=== PATIENT | male | born 1925 | race Caucasian/White ===

== ENCOUNTER 2016-10-02 08:38 | Outpatient (CLI) | payer MEDICARE, OTHER ==
[~2016-10-02] VITALS: Ht 170.2 cm; Wt 61.4 kg
--- NOTE | ~2016-10-02 | HEMODYNAMI ---
PATIENT:JOAQUIN TREADWELL MEDICAL RECORD: [id number] : [birth year] LOCATION:[facility] ADMISSION DATE: 10/02/16 Generatedon:10/02/201615:12 Patient name: JOAQUIN TREADWELL Patient #: [id number] SSN: [id number] : 1925 Date of study: 10/02/2016 Page: Of Hemodynamic Procedure Report Patient Data Patient Demographics Procedure consent was obtained First Name: JOAQUIN Gender: Male Last Name: EBEN : 1925 Patient #: [id number] Age: 89 year(s) Race: SSN: [id number] Additional ID: [id number] Contact details Address: [address] [place] [address] State: [place] City: [place] Zip code: [address] Admission Admission Data Admission Date: 10/02/2016 Admission Time: 8:38 Arrival Date: 10/02/2016 Arrival Time: 11:00 Admit Source: Other Insurance Payor: Medicare Height (in.): 67 BSA: 1.71 (m2) Height (cm.): 170.18 BMI: 21.14 (kg/m2) Weight (lbs.): 135 Weight (kg.): 61.23 Lab Results Lab Result Date: 10/02/2016 Lab Result Time: 0:00 Biochemistry Name Units Result Min Max BUN mg/dl 34 --(----)-* 7 18 Creatinine mg/dl 1.6 --(----)-* 0.6 1.3 CBC Name Units Result Min Max Hemoglobin g/dl 13 -*(----)-- 13.5 17.5 Procedure Procedure Types Cath Procedure Diagnostic Procedure LHC LHC w/Coronaries w/Grafts PCI Procedure SVG-BMS/FIDEL Initial Miscellaneous Procedures Moderate Sedation up to 45 minutes Procedure Description Procedure Date Procedure Date: 10/02/2016 Procedure Start Time: 14:27 Procedure End Time: 15:07 Procedure Staff Name Function Nidia Ribera RN Nurse Ish Martinez MD Performing Physician Jackie Brown RT Scrub Kristan Myers RT Monitor Indication Angina Procedure Data Cath Procedure Fluoroscopy Diagnostic fluoroscopy Total fluoroscopy Time: 11 time: 11 min min Diagnostic fluoroscopy Total fluoroscopy dose: 877 dose: 877 mGy mGy Contrast Material Contrast Material Type Amount (ml) Isovue 370 174 Entry Location Entry Primary Successful Side Size Upsize Upsize Entry Closure Succes sful Closure Location (Fr) 1 (Fr) 2 (Fr) Remarks Device Remarks Femoral Right 5 Fr 6 Fr 6 Fr Exoseal artery Long Short Estimated blood loss: 5 ml Diagnostic catheters Device Type Used For End Catheter Placement Cordis 5Fr Pigtail LV Angiography Catheter (MP) Cordis 5Fr JL 4.0 Left Coronary Catheter (MP) Angiography Cordis 5Fr 3DRC Catheter Multi-vessel (MP) Angiography Diagnostic Infinity 5Fr Multi-vessel AR 2 MOD catheter Angiography Procedure Complications No complications Procedure Medications Medication Administration Route Dosage Oxygen NC 2 l/min Lidocaine 2% added to field 20 Heparin Flush Bag added to field 2 bags (1000units/500ml NS) 0.9% NaCl I.V. 100 ml/hr Versed I.V. 1 mg Fentanyl I.V. 50 mcg Versed I.V. 0.5 mg Fentanyl I.V. 25 mcg Versed I.V. 0.5 mg Fentanyl I.V. 25 mcg Heparin Bolus I.V. 4000 units Cardene I.C. 300 mcg Integrilin (Bolus I.V. 5.6 ml 2mg/ml) Nitroglycerin IC/IA I.C. 100 mcg Hemodynamics Rest BSA: 1.71 (m2) HGB: 13 (g/dl) O2 Consumption: Estimated: 190.04 (ml/min) O2 Cons umption indexed: Estimated:111.13 (ml/min/m) Heart Rate: 65 (bpm) Snapshots Pre Cath Intra NCS Post Cath Vital Signs Time Heart Resp SPO2 etCO2 [id number] NIBP (mmHg) Rhythm Pain Sedation Rate (ipm) (%) (mmHg) (mmHg) Status Level (bpm) 14:14:25 64 19 98 0 0 149/90(123) NSR 0 (11) 10(A) , No pain 14:18:43 62 18 96 0 0 155/69(119) NSR 0 (11) 10(A) , No pain 14:23:04 67 18 95 0 0 132/69(104) NSR 0 (11) 10(A) , No pain 14:27:20 67 18 94 0 0 122/58(96) NSR 0 (11) 9(A) , No pain 14:31:27 62 20 96 0 0 136/70(106) NSR 0 (11) 9(A) , No pain 14:35:42 64 19 96 0 0 127/68(106) NSR 0 (11) 9(A) , No pain 14:39:51 62 19 96 0 0 134/69(106) NSR 0 (11) 9(A) , No pain 14:44:05 61 18 94 0 0 131/66(97) NSR 0 (11) 9(A) , No pain 14:48:19 63 17 95 0 0 141/62(107) NSR 0 (11) 9(A) , No pain 14:52:36 63 16 95 0 0 128/64(98) NSR 0 (11) 9(A) , No pain 14:57:53 63 14 97 0 0 137/58(118) NSR 0 (11) 9(A) , No pain 15:02:15 57 15 97 0 0 115/44(77) NSR 0 (11) 9(A) , No pain 15:06:21 62 19 96 0 0 132/70(101) NSR 0 (11) 10(A) , No pain Medications Time Medication Route Dose Verified Delivered Reason Notes Effectiveness by by 14:13:54 Oxygen NC 2 Ish Jacob used for l/min Michelle Ribera RN procedure 14:16:15 Lidocaine 2% added 20ml Ishjanine Deng for local to vial Michelle Martinez MD anesthetic field 14:16:22 Heparin Flush added 2 Ish Ish used for Bag to bags Michelle Martinez MD procedure (1000units/500ml field NS) 14:16:31 0.9% NaCl I.V. 100 Ish Jacob Per ml/hr Michelle Ribera RN physician 14:24:22 Versed I.V. 1 mg Ish Jacob for sedation Michelle Ribera RN 14:24:28 Fentanyl I.V. 50 Ish Normanie for sedation mcg Michelle Ribera RN 14:34:09 Versed I.V. 0.5 Ish Buffie for sedation mg Michelle Ribera RN 14:34:13 Fentanyl I.V. 25 Ish Jacob for sedation mcg Michelle Ribera RN 14:47:57 Versed I.V. 0.5 Ish Jacob for sedation mg Michelle Ribera RN 14:48:00 Fentanyl I.V. 25 Ish Jacob for sedation mcg Michelle Ribera RN 14:53:56 Heparin Bolus I.V. 4000 Ish Jacob verified units Michelle Ribera RN with dr martinez 14:56:37 Integrilin I.V. 5.6 Ish Jacob for Wasted (Bolus 2mg/ml) ml Michelle Ribera RN antiplatelet 4.4 ml therapy of vial 14:56:49 Cardene I.C. 300 Ish Jacob Per mcg Michelle Ribera RN physician 14:58:47 Nitroglycerin I.C. 100 Ish Deng IC/IA mcg Michelle Martinez MD Procedure Log Time Note 13:54:27 Informed consent obtained and on chart 13:55:07 Admit Source: Other 13:55:56 Arrival Date: 10/02/2016 11:00:00 AM 13:56:03 Insurance Payor : Medicare 13:56:16 Patient Height : 67 cm 13:56:19 Patient Weight : 135 kg 13:57:05 Lab Result : Hemoglobin 13 g/dl 13:57:05 Lab Result : Creatinine 1.6 mg/dl 13:57:05 Lab Result : BUN 34 mg/dl 13:57:17 Diagnostic Cath Status : Elective 13:57:43 Indication : Angina 13:57:50 Jackie Brown RT(R) sent for patient. Start room use. 13:57:53 Time tracking: Regular hours 13:57:58 Plan of Care:Hemodynamics will remain stable., Cardiac rhythm will remain stable., Comfort level will be maintained., Respiratory function will remain adequate., Patient/ family verbilizes understanding of procedure., Procedure tolerated without complication., Recovers from procedure without complications.. 14:05:22 Patient received from Pre/Post Procedure Room to CCL 1 Alert and oriented. Tansferred to table in Supine position. 14:05:28 Warm blankets applied, and victorino hugger turned on for patient comfort. 14:05:29 Correct patient and procedure confirmed by team. 14:05:30 ECG and BP/O2 sat monitors applied to patient. 14:13:16 Vital chart was started 14:13:16 Baseline sample Acquired. 14:13:21 Rhythm: sinus rhythm 14::24 Full Disclosure recording started 14:13:54 Oxygen 2 l/min NC was administered by Nidia Ribera RN; used for procedure; 14:16:15 Lidocaine 2% 20ml vial added to field was administered by Ish Martinez MD; for local anesthetic; 14:16:22 Heparin Flush Bag (1000units/500ml NS) 2 bags added to field was administered by Ish Martinez MD; used for procedure; 14:16:31 0.9% NaCl 100 ml/hr I.V. was administered by Nidia Ribera RN; Per physician; 14:17:21 H&P Date Dictated: 10/01/2016 Within 30 days and on chart., H&P Addendum completed by physician on day of procedure. (MUST COMPLETE FOR ALL OUTPATIENTS). 14:17:23 Pre-procedure instructions explained to patient. 14:17:24 Pre-op teaching completed and patient verbalized understanding. 14:17:25 Family in waiting room. 14:17:27 Patient NPO since Midnight. 14:17:32 Is the patient allergic to Iodine/contrast media? No. 14:17:34 Was the patient premedicated? No 14:17:41 Is patient on blood thinner?Yes 14:17:44 ACC The patient was administered the following blood thiners within the last 24 hours: ACCPlavix 14:18:03 Patient diabetic? No. 14:18:09 Previous problem with sedation/anesthesia? No ? 14:18:14 Snore? No 14:18:16 Sleep apnea? No 14:18:17 Deviated septum? No 14:18:18 Opens mouth fully? Yes 14:18:19 Sticks out tongue? Yes 14:18:27 Airway obstruction? Yes asthma 14:18:33 Dentures? Yes out 14:18:38 Pre procedure: right dorsailis pedis pulse 1+ Palpable, but thready & weak; easily obliterated 14:18:40 Patient pain scale 0/10 ?. 14:18:48 IV patent on arrival in right hand with 0.9% NaCl at [facility]. 14:21:27 Lab results completed and on chart. 14::34 Alarms reviewed by R. N. 14::34 Right groin area was prepped with chlora-prep and draped in sterile fashion 14::35 Sharps counted by scrub and verified by R.N. 14::38 Physician paged 14:: --------ALL STOP TIME OUT------ 14::29 Physician arrived 14::33 Final Timeout: patient, procedure, and site verified with staff and physician. All members of the team are in agreement. 14:22:36 Right groin site verified by team. 14::39 Physical assessment completed. ASA score P 2 - A patient with mild systemic disease as per Ish Martinez MD. 14::43 Sedation plan: IV Moderate Sedation Versed, Fentanyl 14:22:49 Use device set Femoral Dx 14:22:50 Bag Decanter opened to sterile field. 14:22:50 Acist Syringe opened to sterile field. 14:22:51 Terumo 5Fr Clayton Sheath opened to sterile field. 14:22:51 Medline Cath Pack opened to sterile field. 14:22:52 St Clark 260cm J .035 wire opened to sterile field. 14:22:53 Diagnostic Infinity 5Fr Multipack catheter opened to sterile field. 14:22:53 Acist Manifold opened to sterile field. 14:22:53 Acist Hand Control opened to sterile field. 14:22:54 Tegaderm 4 x 4 opened to sterile field. 14:24:22 Versed 1 mg I.V. was administered by Nidia Ribera RN; for sedation; 14:24:28 Fentanyl 50 mcg I.V. was administered by Nidia Ribera RN; for sedation; 14:24:51 Procedure started. 14:27:10 Local anesthetic to right femoral artery with Lidocaine 2% by Ish Martinez MD.INITIAL ACCESS ONLY 14:34:09 Versed 0.5 mg I.V. was administered by Nidia Ribera RN; for sedation; 14:34:13 Fentanyl 25 mcg I.V. was administered by Nidia Ribera RN; for sedation; 14:35:05 A 5 Fr sheath was inserted into the Right Femoral artery 14:35:37 Terumo ANGLED SS 260CM glide wire opened to sterile field. 14:35:47 Terumo TORQUE DEVICE PLASTIC .038 opened to sterile field. 14:36:10 glide wire advanced. 14:39:26 Terumo 6Fr Clayton Destination Sheath opened to sterile field. 14:39:42 Sheath upsized to a 6 Fr Long. 14:40:23 Terumo 6Fr Clayton Sheath opened to sterile field. 14:44:10 Pike Sci AMPLATZ Super stiff 260 3MM J guidewir opened to sterile field. 14:44:34 A Cordis 5Fr Pigtail Catheter (MP) was advanced over the wire and used for LV Angiography. 14:45:03 LV gram done using ARIAS 14:45:06 Injector settings: Ml/sec: 5, Volume: 15, 14:45:14 EF : 30 % 14:45:19 Catheter removed. 14:45:25 A Cordis 5Fr JL 4.0 Catheter (MP) was advanced over the wire and used for Left Coronary Angiography. 14:45:33 LCA angiography performed. 14:45:36 Injector settings: Ml/sec: 3, Volume: 6, 14:46:08 Catheter removed. 14:47:57 Versed 0.5 mg I.V. was administered by Nidia Ribera RN; for sedation; 14:48:00 Fentanyl 25 mcg I.V. was administered by Nidia Ribera RN; for sedation; 14:48:30 A Cordis 5Fr 3DRC Catheter (MP) was advanced over the wire and used for Multi-vessel Angiography. 14:50:15 RCA angiography performed. 14:51:40 Catheter removed. 14:51:52 A Diagnostic Infinity 5Fr AR 2 MOD catheter was advanced over the wire and used for Multi-vessel Angiography. 14:53:29 SVG to LAD angiography performed. 14:53:32 Catheter removed. 14:53:36 Proceeding to intervention. 14:53:56 Heparin Bolus 4000 units I.V. was administered by Nidia Ribera RN; ; verified with dr martinez 14:54:27 Dickey Whisper J 300cm 0.014 guide wire opened to sterile field. 14:54:27 Codekko BasixCompak Inflation Kit opened to sterile field. 14:54:28 Medtronic Launcher 6Fr AR 2.0 guide catheter opened to sterile field. 14:54:34 6 Fr ar 2 guide catheter was inserted over the wire 14:55:38 whisper wire advanced. 14:55:47 Wire advanced across lesion. 14:56:37 Integrilin (Bolus 2mg/ml) 5.6 ml I.V. was administered by Nidia Ribera RN; for antiplatelet therapy; Wasted 4.4 ml of vial 14:56:49 Cardene 300 mcg I.C. was administered by Nidia Ribera RN; Per physician; 14:58:47 Nitroglycerin IC/IA 100 mcg I.C. was administered by Ish Martinez MD; ; 14:59:54 Inflation Number: 1 A Biofreedom 4.0 X 18 stent was prepped and advanced across the Aorta Left -> Mid CX. The stent was deployed at 13 ASHLEIGH for 0:10 (min:sec). 15:01:30 Stent catheter was removed intact over wire. 15::31 Guide catheter removed. 15:01:31 Wire removed. 15:02:34 Cordis 6Fr Exoseal opened to sterile field. 15:03:49 Sheath upsized to a 6 Fr Short. 15:04:30 Sheath removed intact; hemostasis achieved with Exoseal to the Right Femoral artery. 15:04:33 Procedure ended.(Physican Out) 15:05:56 Fluoroscopy time 11.00 minutes. 15:06:00 Fluoroscopy dose: 877 mGy 15:06:00 Flurop Dose total: 877 15:06:16 Contrast amount:Isovue 370 174ml. 15:06:17 Sharps counted by scrub and verified by R.N. 15:06:19 Insertion/operative site no bleeding no hematoma. 15:06:22 Post-op/insertion site Right Femoral artery dressed using a 4 x 4 and Tegaderm. 15:06:24 Post right femoral artery:stable 15:06:26 Post Procedure Pulses reassessed and unchanged 15:06:34 Post procedure rhythm: unchanged. 15:06:37 Estimated blood loss: 5 ml 15:06:39 Patient needs reinforcement of post procedure teaching. 15:06:39 Post procedure instruction explained to patient.Patient verbalizes understanding. 15:07:22 Procedure type changed to Cath procedure, Diagnostic procedure, LHC, LHC w/Coronaries w/Grafts, PCI procedure, SVG-BMS/FIDEL Initial, Miscellaneous Procedures, Moderate Sedation up to 45 minutes 15:07:23 Procedure and supply charges have been captured, reviewed, submitted and are correct. 15:07:28 Procedure Complication : No complications 15:07:31 Vital chart was stopped 15:07:32 See physician's report for complete and final results. 15:07:38 Report given to Pre/Post Procedure Room. 15:07:44 Patient transfered to Pre/Post Procedure Room with Stretcher. 15:07:46 Full Disclosure recording stopped 15:07:46 Procedure ended. 15:07:54 ACC-PCI Only Patient was given prescriptions, or instructed by Ish Martinez MD to start/continue the following medications upon discharge: Plavix 15:07:55 End room use (Document Last) Intervention Summary Intervention Notes Time ActionType Lesion and Equipment Action# Pressure Duration Attributes Used 14:59:54 Place stent Aorta Left Biofreedom 1 13 00:10 -> Mid CX 4.0 X 18 stent Device Usage Item Name Manufacture Quantity Catalog Hospital Part Current Minimal Lot# / Number Charge Number Stock Stock Serial# Code Acist Acist 1 67135 040038 865956 508051 20 Syringe Medical Systems Inc Bag Microtek 1 2002S 135624 31696 520037 5 DecCriterion Security Medical Inc. Medline Cardinal 1 [id number] 491841 93442 150770 5 Cath Pack Health Terumo 5Fr Terumo 1 [id number] 322894 243171 873478 [address] [facility] 1 244805 299017 524177 312723 30 260cm J .035 wire Acist Hand Acist 1 93771 102944 062778 922947 5 Control Medical Systems Inc Acist Acist 1 11692 547230 319873 460914 5 Manifold Medical Systems Inc Diagnostic Cardinal 1 [id number] 941810 83196 049646 30 Infinity Health 5Fr Multipack catheter Tegaderm 4 3M 1 1626W 338950 388437 518357 5 x 4 Terumo Terumo 1 JR6700 132642 134299 327354 5 [address]GLED SS 260CM glide wire Terumo [place]ike 1 TD01 878096 021160 089378 5 TORQUE Scientific DEVICE PLASTIC .038 Terumo 6Fr Terumo 1 RSR01 923286 73516 345172 5 Clayton Destination Sheath Terumo 6Fr Terumo 1 DHG998 342381 171292 224031 40 Clayton Sheath [place] 1 [id number] 896594 914082 5 AMPLATZ Scientific Super stiff 260 3MM J guidewir Cordis 5Fr Cardinal 1 984151 5 Pigtail Health Catheter (MP) Cordis 5Fr Cardinal 1 191137 5 JL 4.0 Health Catheter (MP) Cordis 5Fr Cardinal 1 569876 5 3DRC Health Catheter (MP) Diagnostic Cardinal 1 [id number] 094091 521251 178814 20 Infinity Health 5Fr AR 2 MOD catheter Merit Merit 1 [id number] 719696 954651 364846 15 BasixCompak Medical Inflation Kit Dickey Dickey 1 [id number] 641225 325737 876886 5 Whisper J Vascular 300cm 0.014 guide wire Medtronic Medtronic 1 [id number] 095470 54395 285082 1 Launcher 6Fr AR 2.0 guide catheter Biofreedom Biosensors 1 [facility]-4018 269172 065946 5 [id number] 4.0 X 18 Europe SA stent Cordis 6Fr Cardinal 1 EX600 556057 403152 193972 10 [facility] TeeBeeDee Signature Audit [place] Stage Time Signature Unsigned Intra-Procedure 10/02/2016 Kristan Myers 3:12:25 PM RT(R) Signatures Monitor : Kristan Myers RT Signature : Date : Time : [place] [id number] [place] [address]
[2016-10-02] MEDS ORDERED: SINGULAIR10 MG PO (08:59)
[2016-10-02] MEDS ORDERED: OMEPRAZOLE20 M1 PO (08:59)
[2016-10-02] MEDS ORDERED: COREG6.25 MG PO (09:00)
[2016-10-02] MEDS ORDERED: LOVASTATIN20 MG PO (09:00)
[2016-10-02] MEDS ORDERED: PULMICORT FLEX90 MCG INH (09:01)
[2016-10-02] MEDS ORDERED: ALBUTEROL1.25 MG/3 INH (09:02)
[2016-10-02] MEDS ORDERED: FUROSEMIDE20 MG PO (09:03)
[2016-10-02] MEDS ORDERED: NEURONTIN 300300 MG PO (09:03)
[2016-10-02] MEDS ORDERED: K-DUR20 MEQ PO (09:03)
[2016-10-02] MEDS ORDERED: PLAVIX75 MG PO (09:05)
[2016-10-02 09:17] VITALS: BP 172/72; Ht 170.2 cm; Wt 61.4 kg
[2016-10-02 09:39] LABS: BASOPHILS 0.5 % (0-2); HEMATOCRIT 39.9 % (42.0-54.0); IMMATURE GRANULOCYTES 0.2 % (0-5); LYMPHOCYTES 11.7 % (15-50); MCH 26.6 pg (26.0-34.0); MCHC 32.6 g/dL (31.0-37.0); MCV 81.6 fL (80.0-100.0); MEAN PLATELET VOLUME 9.8 fL (7.4-10.4); MONOCYTES 15.2 % (2-11); NEUTROPHILS 67.4 % (40-80); PLATELET COUNT 202 10x3/uL (130-400); RBC 4.89 10x6/uL (4.20-6.10); WBC 5.8 10x3/uL (4.8-10.8)
[2016-10-02 10:12] LABS: CALC OSMOLALITY 286 mosm/kg (275-300); CALCIUM 9.1 mg/dL (8.5-10.1); CARBON DIOXIDE 28.6 mmol/L (21.0-32.0); CHLORIDE - SERUM 104 mmol/L (98-107); CKMB 3.5 U/L (0.0-3.6); CREATINE KINASE 79 UL (21-232); CREATININE - SERUM 1.6 mg/dL (0.6-1.3); GLUCOSE 100 mg/dL (74-106); POTASSIUM - SERUM 5.2 mmol/L (3.5-5.1); SODIUM 140 mmol/L (136-145); UREA NITROGEN 34 mg/dL (7-18); eGFR NON AFRICAN AMERICAN 43 mL/min (90-120)
[2016-10-02 10:14] LABS: TROPONIN-I < 0.017 ng/mL (0.000-0.060)
[2016-10-02] MEDS ORDERED: BAYER CHEWABLE81 MG PO (15:31)
--- NOTE | 2016-10-02 17:26 | NUR ---
1610 EATING TURKEY SANDWICH WITH ASSIST FROM FAMILY AT BEDSIDE. SIPPING WATER...BOTH WITH NO NAUSEA. ALL VITALS REMAIN WNL. R GROIN 6F EXO REMAINS C/D/I WITH NO HEMATOMA OR BLEEDING. PULSES PALPX4. 1710 VOIDED 400CC VIA URINAL. R GROIN REMAINS C/D/I.
--- NOTE | 2016-10-02 17:30 | NUR ---
PATIENT REQUESTING ALBUTEROL INHALER THAT HE TAKES NIGHTLY...DIDNT BRING IT WITH HIM. ROXY MONTALVO.
--- NOTE | 2016-10-02 17:35 | NUR ---
T/O FOR ALBUTEROL UPDRAFT PER DR. RAMSEY.
--- NOTE | 2016-10-02 19:10 | NUR ---
1849 PIV REMOVED FROM RIGHT FOREARM WITH BANDAID APPLIED. 1909 UP TO BEDSIDE TO DRESS. R GROIN REMAINS C/D/I WITH NO HEMATOMA OR BLEEDING. D/C INSTRUCTIONS DISCUSSED WITH PATIENT AND FAMILY AT BEDSIDE. R GROIN REMAINS C/D/I AFTER STANDING AND AMBULATING. WHEELED OUT VIA WHEELCHAIR BY CATH TEAM.
--- NOTE | 2016-10-04 08:58 | OP ---
PATIENT NAME: JOAQUIN TREADWELL MEDICAL RECORD: [id number] :[birth year] LOCATION:[facility] ADMISSION DATE: SURGEON: BARB RAMSEY MD DATE OF OPERATION: 10/02/2016 PROCEDURES: 1. PTCA stent vein graft to the LAD diagonal. 2. Left heart catheterization. 3. Selective coronary angiography. 4. Vein graft angiography. 5. SOW angiography. INDICATION: Angina and coronary artery disease. PROCEDURE: After informed consent was obtained and after a detailed explanation of risks, benefits as well as alternative therapies, the patient elected to proceed with angiogram and angioplasty. The right femoral area was prepped and draped in normal sterile fashion. The right femoral artery was cannulated via modified Seldinger technique with placement of 6-Lao sheath. All catheters exchanged through this sheath. FINDINGS: Left ventriculogram was performed in standard 30-degree ARIAS view reveals global hypokinesis throughout all segments. Overall ejection fraction is 30%. SELECTIVE CORONARY ANGIOGRAPHY: 1. Left main has 90% stenosis. 2. Left anterior descending has a 90% stenosis proximally. 3. The LAD diagonal has 98% stenosis ostially. 4. SOW to the LAD appears closed. 5. The vein graft to the LAD diagonal was opened with an 80% to 90% stenosis in the mid shaft. 6. The left circumflex is closed in the mid vessel. 7. The right coronary is closed. 8. Vein graft to the right coronary is closed. PTCA STENT OF THE VEIN GRAFT TO THE LAD DIAGONAL: The stent used is a 4.0 x 18 mm BioFreedom stent. Result was 0% residual stenosis. OVERALL IMPRESSION: Successful percutaneous transluminal coronary angioplasty stent of the vein graft to the left anterior descending diagonal going from 80% to 90% initial stenosis to 0% residual. TRANSINT:[id number] Voice Confirmation ID: [id number] DOCUMENT ID: [id number] BARB RAMSEY MD at 0858 CC: [id number] DICTATION DATE: 10/02/16 151 DIRECTOR OF OPERATIONS FOR THERAPY: 10/02/162114 DEP CLI 10/02/16 [place] [address]
== END 2016-10-02 19:11 | disposition home or self-care (01) ==
LOC: D.CATH 08:38
PROVIDERS: Internal Medicine Interventional Cardiology
DX: I25.119 Atherosclerotic heart disease of native coronary artery with unspecified angina pectoris (principal); I25.719 Atherosclerosis of autologous vein coronary artery bypass graft(s) with unspecified angina pectoris; Z00.6 Encounter for examination for normal comparison and control in clinical research program; Z01.812 Encounter for preprocedural laboratory examination
CPT/HCPCS: 93459; C9604